=== PATIENT | male | born 2000 | race Caucasian/White ===

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

== ENCOUNTER 2024-10-02 13:00 | Emergency (ER) | payer BC, SELFPAY ==
[2024-10-02 13:00] VITALS: BP 116/72; PULSE 64; RESP 20; TEMP 36.7; O2SAT 99
[2024-10-02] MEDS: LIDOCAINE 1% LOCAL INJ 10 ML VIAL INFILTRATE (13:21)
--- OUTSIDE RECORDS SUMMARY | 2024-10-02 13:22 | XMS_ITS | Clinical Summary ---
Author Organization [facility] [employer] Address [address] [place] [address] Care Team Providers Care Oil Well Shooter Name Role Phone Unavailable Primary Care Provider Unavailabl e Source Comments [facility] [employer],non-owned Affiliates and Associated Physician Practices is amultiple site organization consisting of ambulatory clinics and hospital sitesin [place], [place], [place] and [place]. This disclosure is being madepursuant to the Care Everywhere program and may not contain all information available regarding this patient. Last updated 18.[employer] Allergies No known active allergies Social History Tobacco Use Types Packs/Day Years Used Date Smoking Tobacco: Every Day Cigarettes Tobacco Cessation:Ready to Q uit: No; Counseling Given: Not Answered Alcohol Use Standard Drinks/Week Comments Not Currently 0 (1 standard drink = 0.6 oz pur e alcohol) AUDIT-C Answer Date Recorded Q1: How often do you have a drink containing alcohol? Never 05/24/2022 Q2: How many drinks containi ng alcohol do you have on a typical day when you are drinking? Patient does not drink Q3: How often do you have si x or more drinks on one occasion? 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 Gender Identity Not on file Sexual Orientation Not on file Last Filed Vital Signs Vital Sign Reading Time Taken Comments Blood Pressure 129/80 05/24/2022 4:24 PM AIR BAG BUFFER Pulse 95 05/24/2022 4:24 PM AIR BAG BUFFER Temperature 37.2 C (98.9 F) 05/24/2022 4:30 PM AIR BAG BUFFER Respiratory Rate 16 05/24/2022 4:24 PM AIR BAG BUFFER Oxygen Saturation 99% 05/24/2022 4:24 PM AIR BAG BUFFER Inhaled Oxygen Concentration - - Weight 70.3 kg (155 lb) 05/24/2022 4:24 PM AIR BAG BUFFER Height 162.6 cm (5' 4) 05/24/2022 4:24 PM AIR BAG BUFFER Body Mass Index 26.61 05/24/2022 4:24 PM AIR BAG BUFFER Plan of Treatment Health Maintenance Due Date Last Done Comments HIV SCREENING 2017 HPV VACCINE (1 - Male 3-dose series) 2017 MENINGOCOCCAL (Group B) VACC INE SHARED DECISION-MAKING (1 of 2 - Standard) 2018 HEPATITIS C SCREENING 01/01/2020 DTAP/TDAP/TD VACCINES (1 - Tdap) 2021 HEPATITIS B VACCINE (1 of 3 - 19+ 3-dose series) 2021 PNEUMOCOCCAL VACCINE (1 of 2 - PCV) 2021 COVID-19 VACCINE (1 - 2023-2 5 season) 2023 DEPRESSION SCREENING 04/16/2024 INFLUENZA VACCINE (Season Ended) 2024 ZOSTER VACCINE (1 of 2) 01/06/2052 HIB VACCINE Aged Out No longer eligi ble based on patient's age to complete this topic MENINGOCOCCAL GROUPS A/C/Y/W VACCINE Aged Out No longer eligible b ased on patient's age to complete this topic Insurance ANTHEM ANTHEM
--- NOTE | 2024-10-02 13:34 | ED.WOUNDLAC ---
HPI - Wound/Laceration General Chief Complaint: Wound/Laceration Stated Complaint: lip laceration Time Seen by Provider: 10/02/24 13:07 Source: patient and family Mode of arrival: ambulatory Limitations: no limitations History of Present Illness HPI narrative: this is a 24-year-old male with no significant past medical history fell forward and caused a laceration to his middle upper lip after he had a car door no other injuries no loss of consciousness no headache no blurry vision. Onset (ago): hour(s) Location: face Place: outdoors Patient tetanus UTD: No Context: accidental Associated symptoms: none Related Data Home Medications ?Medication ?Instructions ?Recorded ?Confirmed ?Last Taken ?Type No Home Medications 10/02/24 10/02/24 Unknown History Allergies Allergy/AdvReac Type Severity Reaction Status Date / Time No Known Allergies Allergy Verified 10/02/24 13:07 Review of Systems Review of Systems: All systems reviewed & are unremarkable except as noted in HPI and below PMFSH Past Medical History Medical History Patient denies medical problems Exam Const: General: healthy appearing, no acute distress and alert Nutritional Appearance: well nourished Orientation/consciousness: patient oriented x3 Limitations: no limitations HENMT: Face/Nose/Sinus: Normal external nose present Other: laceration to the upper lip approximately 1.5 cm in length Eyes: Conjunctivae: conjunctivae normal Neck: Neck: normal visual inspection, no lymphadenopathy and no meningeal signs Chest: Chest palpation & inspection: normal inspection of the chest Resp: Effort & Inspection: normal respiratory effort Auscultation: clear to auscultation bilaterally GI: GI Palp: Yes Soft to palpation Skin: Wounds: wounds noted Neuro: General: patient oriented x3, moves all extremities, no meningeal signs and no focal motor deficits Course Course Emergency Course: patient had lidocaine and numb the area was cleaned and irrigated patient tolerated procedure well had 4 sutures placed in the upper her lip. Procedures Laceration Laceration 1: Date: 10/02/24 Time: 13:37 Site: lip Size (cm): 1.5 Description: linear Depth: simple, single layer Local Anesthetic: lidocaine 1% Amount of anesthesia used (mL): 5 Pre-repair: wound explored, irrigated and irrigated extensively ====== Skin Level ====== Skin layer closed with: vicryl Size (cm): 6-0 Number of sutures: 6 ====== Subcutaneous Layer ====== ====== Muscle Layer ====== ====== Tendon Layer ====== Critical Care Time Critical Care Time Critical Care Time: No Discharge Plan Discharge Clinical Impression: Laceration Patient Disposition: Home Condition: Stable Instructions: Antibiotic Form, Laceration (ED) Additional Instructions: Advised patient to take Tylenol Motrin as needed, follow-up with primary care physician in 8 days for suture removal. Patient Language: Estonian Prescriptions: No Action No Home Medications Follow-up/Referrals: Bernabe Sales MD [Primary Care Provider] - Time of Disposition: 13:38
--- OUTSIDE RECORDS SUMMARY | 2024-10-02 13:54 | XMS_ITS | Clinical Summary ---
Author Organization [facility] [email or web address] Address [address] [place] [address] Care Team Providers Care Interior Design Consultant Name Role Phone Unavailable Primary Care Provider Unavailabl e Source Comments [facility] [email or web address],non-owned Affiliates and Associated Physician Practices is amultiple site organization consisting of ambulatory clinics and hospital sitesin [place], [place], [place] and [place]. This disclosure is being madepursuant to the Care Everywhere program and may not contain all information available regarding this patient. 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 Gender Identity Not on file Sexual Orientation Not on file Last Filed Vital Signs Vital Sign Reading Time Taken Comments Blood Pressure 129/80 05/24/2022 4:24 PM RETAIL CUSTOMER SERVICE REPRESENTATIVE Pulse 95 05/24/2022 4:24 PM RETAIL CUSTOMER SERVICE REPRESENTATIVE Temperature 37.2 C (98.9 F) 05/24/2022 4:30 PM RETAIL CUSTOMER SERVICE REPRESENTATIVE Respiratory Rate 16 05/24/2022 4:24 PM RETAIL CUSTOMER SERVICE REPRESENTATIVE Oxygen Saturation 99% 05/24/2022 4:24 PM RETAIL CUSTOMER SERVICE REPRESENTATIVE Inhaled Oxygen Concentration - - Weight 70.3 kg (155 lb) 05/24/2022 4:24 PM RETAIL CUSTOMER SERVICE REPRESENTATIVE Height 162.6 cm (5' 4) 05/24/2022 4:24 PM RETAIL CUSTOMER SERVICE REPRESENTATIVE Body Mass Index 26.61 05/24/2022 4:24 PM RETAIL CUSTOMER SERVICE REPRESENTATIVE Plan of Treatment Health Maintenance Due Date [...]
== END 2024-10-02 13:45 | disposition home or self-care (01) ==
LOC: CHSED 13:41
PROVIDERS: Emergency Provider Emergency Medicine; PCP Family Medicine
DX: S01.511A Laceration without foreign body of lip, initial encounter (principal); W18.39XA Other fall on same level, initial encounter
CPT/HCPCS: 12011; 99282; J2003